=== PATIENT | male | born 1925 | race Caucasian/White ===

== ENCOUNTER 2017-01-08 08:27 | Inpatient (IN) | payer BC ==
[~2017-01-08] VITALS: Ht 177.8 cm; Wt 79.4 kg
[2017-01-08 09:15] LABS: HEMATOCRIT 40.3 % (38.0-50.0); MCH 30.1 PG (29.0-34.0); MCHC 32.5 G/DL (30.0-36.0); MCV 92.6 FL (86-99); MEAN PLAT.VOLUME 9.1 uM^3 (9.0-12.4); PLATELET COUNT 274 K/uL (156-360); RBC DIS.WIDTH-CV 13.3 % (11.8-14.6); RBC DIS.WIDTH-SD 45.5 % (39-53); RED BLOOD COUNT 4.35 M/uL (4.00-5.50)
[2017-01-08 09:16] LABS: WHITE BLOOD COUNT 8.1 K/uL (4.1-10.2)
[2017-01-08 09:23] LABS: CHLORIDE 105 mEq/L (99-109); POTASSIUM 4.3 mEq/L (3.7-5.4); SODIUM 140 mEq/L (136-147)
[2017-01-08 09:24] LABS: GLUCOSE 104 mg/dL (70-99)
[2017-01-08 09:26] LABS: ANION GAP 12 MEQ/L (2-14)
[2017-01-08 09:29] LABS: UREA NITROGEN (BUN) 27 mg/dL (9-23)
[2017-01-08 09:40] LABS: GFR ESTIMATE (CALCULATED) 32 mL/min/
[2017-01-08 11:53] LABS: ADD MIUA? YES; BILIRUBIN NEGATIVE; BLOOD SMALL; COLOR STRAW ((YELLOW)); GLUCOSE (STRIP) NEGATIVE; KETONES NEGATIVE; LEUKOCYTES NEGATIVE; NITRITE NEGATIVE; PROTEIN (STRIP) 30; SPECIFIC GRAVITY 1.009 (1.000-1.030); UROBILINOGEN 0.2 MG/DL (0.2-1.0)
[2017-01-08 11:58] LABS: BACTERIA NONE SEEN /HPF; EPITHELIAL CELLS NONE SEEN /HPF; HYALINE CASTS 0-5 /LPF; MUCUS TRACE /LPF; RED BLOOD CELLS 0-5 /HPF (0-5); WHITE BLOOD CELLS 0-5 /HPF (0-5)
[2017-01-08] MEDS ORDERED: AMLODIPINE BES2.5 MG PO (13:19)
[2017-01-08] MEDS ORDERED: METOPROLOL SUCC25 MG PO (13:19)
[2017-01-08] MEDS ORDERED: LOPRESSOR25 MG PO (13:20)
[2017-01-08] MEDS ORDERED: ESCITALOPRAM OXA5 MG PO (13:20)
[2017-01-08] MEDS ORDERED: APRESOLINE50 MG PO (13:21)
[2017-01-08] MEDS ORDERED: LORAZEPAM0.5 MG PO (13:21)
[2017-01-08] MEDS ORDERED: ASPIRIN325 MG PO (13:22)
[2017-01-08] MEDS ORDERED: LITE COAT ASPI325 M1 PO (13:22)
[2017-01-08] MEDS ORDERED: ACETAMINOPHEN325 M3 PO (16:17)
[2017-01-08] MEDS ORDERED: ASPERCREME 1035.4 GM TP (16:17)
[2017-01-08] MEDS ORDERED: TAMIFLU75 MG PO (16:19)
[2017-01-08 16:43] VITALS: BP 174/78
[2017-01-08 18:59] VITALS: BP 166/69
[2017-01-08 23:10] VITALS: BP 151/81
[2017-01-09 03:31] VITALS: BP 147/77
[2017-01-09 07:10] VITALS: BP 154/68
[2017-01-09 09:41] LABS: HEMATOCRIT 34.2 % (38.0-50.0); MCH 29.9 PG (29.0-34.0); MCHC 32.5 G/DL (30.0-36.0); MCV 92.2 FL (86-99); PLATELET COUNT 213 K/uL (156-360); RBC DIS.WIDTH-CV 13.6 % (11.8-14.6); RBC DIS.WIDTH-SD 46.7 % (39-53); RED BLOOD COUNT 3.71 M/uL (4.00-5.50); WHITE BLOOD COUNT 6.1 K/uL (4.1-10.2)
[2017-01-09 09:50] LABS: ANION GAP 7 MEQ/L (2-14); CHLORIDE 106 MEQ/L (99-109); GFR ESTIMATE (CALCULATED) 36 mL/min/; GLUCOSE 119 mg/dL (70-99); POTASSIUM 4.2 MEQ/L (3.7-5.4); SAMPLE HEMOLYSIS CHECK 0; SAMPLE ICTERIC CHECK 0; SAMPLE LIPEMIA CHECK 0; SODIUM 137 MEQ/L (136-147); UREA NITROGEN (BUN) 29 mg/dL (9-23)
[2017-01-09 11:25] VITALS: BP 145/105
[2017-01-09 16:07] VITALS: BP 152/69
[2017-01-09 19:00] VITALS: BP 167/70
[2017-01-09 22:42] VITALS: BP 150/78
[2017-01-10 04:04] VITALS: BP 170/68
[2017-01-10 06:42] LABS: ANION GAP 12 MEQ/L (2-14); CHLORIDE 103 MEQ/L (99-109); GFR ESTIMATE (CALCULATED) 38 mL/min/; GLUCOSE 91 mg/dL (70-99); POTASSIUM 3.8 MEQ/L (3.7-5.4); SAMPLE HEMOLYSIS CHECK 0; SAMPLE ICTERIC CHECK 0; SAMPLE LIPEMIA CHECK 0; SODIUM 137 MEQ/L (136-147); UREA NITROGEN (BUN) 30 mg/dL (9-23)
[2017-01-10 06:55] VITALS: BP 174/77
[2017-01-10 07:34] VITALS: BP 152/80
[2017-01-10 11:59] VITALS: BP 120/61
[2017-01-10 16:19] VITALS: BP 165/77
[2017-01-10 22:39] VITALS: BP 171/74
[2017-01-11 06:40] LABS: ANION GAP 9 MEQ/L (2-14); CHLORIDE 105 MEQ/L (99-109); GFR ESTIMATE (CALCULATED) 38 mL/min/; GLUCOSE 83 mg/dL (70-99); POTASSIUM 3.9 MEQ/L (3.7-5.4); SAMPLE HEMOLYSIS CHECK 0; SAMPLE ICTERIC CHECK 0; SAMPLE LIPEMIA CHECK 0; SODIUM 137 MEQ/L (136-147); UREA NITROGEN (BUN) 32 mg/dL (9-23)
[2017-01-11 08:31] VITALS: BP 188/85
[2017-01-11 09:53] VITALS: BP 150/78
[2017-01-11 11:15] VITALS: BP 150/69
[2017-01-11 15:31] VITALS: BP 140/78
[2017-01-11 22:43] VITALS: BP 154/74
[2017-01-12 07:01] VITALS: BP 178/81
[2017-01-12 16:52] VITALS: BP 147/72
[2017-01-12 22:39] VITALS: BP 152/73
[2017-01-13 07:56] VITALS: BP 112/59
[2017-01-13 16:10] VITALS: BP 116/64
[2017-01-13 19:49] VITALS: BP 149/71
[2017-01-14 00:54] VITALS: BP 174/80
[2017-01-14 07:00] LABS: HEMATOCRIT 32.7 % (38.0-50.0); MCH 29.6 PG (29.0-34.0); MCHC 32.7 G/DL (30.0-36.0); MCV 90.6 FL (86-99); MEAN PLAT.VOLUME 9.4 uM^3 (9.0-12.4); PLATELET COUNT 255 K/uL (156-360); RBC DIS.WIDTH-CV 13.5 % (11.8-14.6); RBC DIS.WIDTH-SD 44.8 % (39-53); RED BLOOD COUNT 3.61 M/uL (4.00-5.50); WHITE BLOOD COUNT 5.5 K/uL (4.1-10.2)
[2017-01-14 07:26] LABS: ANION GAP 9 MEQ/L (2-14); CHLORIDE 106 MEQ/L (99-109); GFR ESTIMATE (CALCULATED) 41 mL/min/; GLUCOSE 100 mg/dL (70-99); SAMPLE HEMOLYSIS CHECK 0; SAMPLE ICTERIC CHECK 0; SAMPLE LIPEMIA CHECK 0; SODIUM 139 MEQ/L (136-147); UREA NITROGEN (BUN) 31 mg/dL (9-23)
[2017-01-14 15:30] VITALS: BP 194/78
[2017-01-14 20:48] VITALS: BP 137/65
[2017-01-14 23:50] VITALS: BP 131/67
[2017-01-15 03:15] VITALS: BP 149/67
[2017-01-15 06:28] LABS: ANION GAP 7 MEQ/L (2-14); CHLORIDE 105 MEQ/L (99-109); GFR ESTIMATE (CALCULATED) 47 mL/min/; GLUCOSE 116 mg/dL (70-99); POTASSIUM 4.2 MEQ/L (3.7-5.4); SAMPLE HEMOLYSIS CHECK 0; SAMPLE ICTERIC CHECK 0; SAMPLE LIPEMIA CHECK 0; SODIUM 137 MEQ/L (136-147); UREA NITROGEN (BUN) 24 mg/dL (9-23)
[2017-01-15 06:37] LABS: BASOPHIL COUNT 0.1 K/uL (0-0.1); EOSINOPHIL (%) 1.7 % (0-5); EOSINOPHIL COUNT 0.1 K/uL (0-0.3); HEMATOCRIT 34.4 % (38.0-50.0); IMMATURE GRANULOCYTE (%) 0.6 % (0.0-0.7); IMMATURE GRANULOCYTE COUNT 0.1 K/uL; LYMPHOCYTE COUNT 0.7 K/uL (1.0-2.8); MCH 29.9 PG (29.0-34.0); MCHC 32.6 G/DL (30.0-36.0); MEAN PLAT.VOLUME 9.2 uM^3 (9.0-12.4); MONOCYTE (%) 9.8 % (3-12); MONOCYTE COUNT 0.8 K/uL (0-0.8); NEUTROPHIL (%) 77.8 % (45-76); PLATELET COUNT 262 K/uL (156-360); RBC DIS.WIDTH-CV 13.5 % (11.8-14.6); RBC DIS.WIDTH-SD 45.7 % (39-53); RED BLOOD COUNT 3.74 M/uL (4.00-5.50); WHITE BLOOD COUNT 7.8 K/uL (4.1-10.2)
[2017-01-15 07:21] VITALS: BP 150/67
[2017-01-15 11:00] VITALS: BP 144/66
[2017-01-15 15:10] VITALS: BP 142/64
[2017-01-15 19:09] VITALS: BP 144/56
[2017-01-15 22:59] VITALS: BP 155/70
[2017-01-16 03:48] VITALS: BP 163/72
[2017-01-16 09:21] VITALS: BP 180/73
[2017-01-16 11:12] VITALS: BP 155/69
[2017-01-16 17:02] VITALS: BP 190/79
[2017-01-16 18:04] VITALS: BP 160/73
[2017-01-16 22:57] VITALS: BP 154/69
[2017-01-17 04:06] VITALS: BP 152/82
[2017-01-17 07:11] VITALS: BP 138/67
[2017-01-17 11:27] VITALS: BP 140/72
[2017-01-17 19:07] VITALS: BP 145/81
[2017-01-17 22:50] VITALS: BP 165/78
[2017-01-18 03:33] VITALS: BP 167/73
[2017-01-18 08:25] VITALS: BP 141/87
[2017-01-18 12:00] VITALS: BP 155/69
[2017-01-18 16:56] VITALS: BP 162/77
[2017-01-18 19:40] VITALS: BP 141/89
[2017-01-18 23:07] VITALS: BP 141/68
[2017-01-19 10:15] VITALS: BP 138/64
[2017-01-19] MEDS ORDERED: APRESOLINE25 MG PO (16:10)
[2017-01-19] MEDS ORDERED: CEPHALEXIN500 MG PO (16:10)
[2017-01-19] MEDS ORDERED: DONEPEZIL HCL5 MG PO (16:10)
[2017-01-19] MEDS ORDERED: TAMSULOSIN HCL0.4 MG PO (16:10)
[2017-01-19] MEDS ORDERED: AMLODIPINE BESY10 MG PO (16:11)
[2017-01-19] MEDS ORDERED: FINASTERIDE5 MG PO (16:11)
[2017-01-19] MEDS ORDERED: AQUAPHOR W-NAT50 GM TP (16:13)
[2017-01-19 16:47] VITALS: BP 138/64
== END 2017-01-19 18:25 | DRG 982 ==
LOC: EME 08:27 → 5EAST 14:00 → EDOF 14:00 → 5EAST 16:23
PROVIDERS: Internal Medicine; Nurse Practitioner Family; Surgery
DX: L03.116 Cellulitis of left lower limb (principal); N17.9 Acute kidney failure, unspecified; E11.22 Type 2 diabetes mellitus with diabetic chronic kidney disease; I27.2 Other secondary pulmonary hypertension; G30.9 Alzheimer's disease, unspecified; I48.0 Paroxysmal atrial fibrillation; I12.9 Hypertensive chronic kidney disease with stage 1 through stage 4 chronic kidney disease, or unspecified chronic kidney disease; R55 Syncope and collapse; E78.5 Hyperlipidemia, unspecified; F41.9 Anxiety disorder, unspecified; K40.90 Unilateral inguinal hernia, without obstruction or gangrene, not specified as recurrent; N18.3 Chronic kidney disease, stage 3 (moderate); R26.9 Unspecified abnormalities of gait and mobility; R62.50 Unspecified lack of expected normal physiological development in childhood; I25.10 Atherosclerotic heart disease of native coronary artery without angina pectoris; Z95.5 Presence of coronary angioplasty implant and graft; L03.115 Cellulitis of right lower limb; M17.9 Osteoarthritis of knee, unspecified; Z95.0 Presence of cardiac pacemaker; F02.80 Dementia in other diseases classified elsewhere, unspecified severity, without behavioral disturbance, psychotic disturbance, mood disturbance, and anxiety; Z95.1 Presence of aortocoronary bypass graft; N40.1 Benign prostatic hyperplasia with lower urinary tract symptoms; R33.8 Other retention of urine
CPT/HCPCS: 70450; 71010; 71020; 72125; 72170; 72192; 80048; 81003; 85025; 85027; 87040; 88302; 93005; 94799; 97530 GO; 97530 GP; 99281; 99285; C1781; J0690; J0696; J1650; J2250; J2405; J3010; J7030; J7040; J7042; J7050; S0020

== ENCOUNTER 2017-02-01 09:36 | Emergency (ER) | payer BC ==
[~2017-02-01] VITALS: Ht 177.8 cm; Wt 72.1 kg
[~2017-02-01 09:36] MED LIST: ACETAMINOPHEN325 M3 PO; AMLODIPINE BES2.5 MG PO; AMLODIPINE BESY10 MG PO; APRESOLINE25 MG PO; APRESOLINE50 MG PO; AQUAPHOR W-NAT50 GM TP; ASPERCREME 1035.4 GM TP; ASPIRIN325 MG PO; CEPHALEXIN500 MG PO; DONEPEZIL HCL5 MG PO; ESCITALOPRAM OXA5 MG PO; FINASTERIDE5 MG PO; LITE COAT ASPI325 M1 PO; LOPRESSOR25 MG PO; LORAZEPAM0.5 MG PO; METOPROLOL SUCC25 MG PO; TAMIFLU75 MG PO; TAMSULOSIN HCL0.4 MG PO
[2017-02-01] MEDS ORDERED: TYLENOL REGULA325 MG PO ×2 (10:03→10:07)
[2017-02-01] MEDS ORDERED: AQUAPHOR OINTM105 GM TP (10:03)
[2017-02-01] MEDS ORDERED: MULTIPLE VITAM1 EAC1 PO (10:04)
[2017-02-01] MEDS ORDERED: FINASTERIDE5 MG PO (10:04)
[2017-02-01] MEDS ORDERED: ESCITALOPRAM OXA5 MG PO (10:04)
[2017-02-01] MEDS ORDERED: TAMSULOSIN HCL0.4 MG PO (10:05)
[2017-02-01] MEDS ORDERED: METOPROLOL SUCC25 MG PO ×2 (10:05→10:06)
[2017-02-01] MEDS ORDERED: HYDRALAZINE HCL25 MG PO (10:06)
[2017-02-01 10:26] LABS: BASOPHIL COUNT 0.1 K/uL (0-0.1); EOSINOPHIL (%) 6.9 % (0-5); EOSINOPHIL COUNT 0.4 K/uL (0-0.3); HEMATOCRIT 34.1 % (38.0-50.0); IMMATURE GRANULOCYTE (%) 0.4 % (0.0-0.7); INSTRUMENT ABS NEUTROPHIL CT 3.3 K/uL; LYMPHOCYTE COUNT 0.9 K/uL (1.0-2.8); MCH 29.5 PG (29.0-34.0); MCV 92.4 FL (86-99); MONOCYTE (%) 11.8 % (3-12); MONOCYTE COUNT 0.6 K/uL (0-0.8); NEUTROPHIL (%) 62.2 % (45-76); NEUTROPHIL COUNT 3.3 K/uL (1.8-6.4); PLATELET COUNT 313 K/uL (156-360); RBC DIS.WIDTH-CV 13.7 % (11.8-14.6); RBC DIS.WIDTH-SD 46.2 % (39-53); RED BLOOD COUNT 3.69 M/uL (4.00-5.50)
[2017-02-01 10:33] LABS: CHLORIDE 105 mEq/L (99-109); POTASSIUM 4.2 mEq/L (3.7-5.4); SODIUM 137 mEq/L (136-147)
[2017-02-01 10:34] LABS: GLUCOSE 151 mg/dL (70-99); WHITE BLOOD COUNT 5.2 K/uL (4.1-10.2)
[2017-02-01 10:36] LABS: ANION GAP 10 MEQ/L (2-14)
[2017-02-01 10:38] LABS: GFR ESTIMATE (CALCULATED) 36 mL/min/
[2017-02-01 10:39] LABS: UREA NITROGEN (BUN) 28 mg/dL (9-23)
[2017-02-01 11:45] VITALS: BP 131/64
== END 2017-02-01 11:50 ==
LOC: EME → EDBD 09:36 → EME 11:50
PROVIDERS: Emergency Medicine
DX: R55 Syncope and collapse (principal); I25.10 Atherosclerotic heart disease of native coronary artery without angina pectoris; I25.2 Old myocardial infarction; I12.9 Hypertensive chronic kidney disease with stage 1 through stage 4 chronic kidney disease, or unspecified chronic kidney disease; N18.3 Chronic kidney disease, stage 3 (moderate); Z91.81 History of falling
CPT/HCPCS: 80048; 85025; 93005; 99281; 99284